=== PATIENT | female | born 1940 | race Caucasian/White ===

== ENCOUNTER 2016-12-11 12:31 | Day surgery (SDC) | payer MEDICARE, BC ==
--- NOTE | ~2016-12-11 | OP ---
Record Of Operation [facility] [address] [place]. [address] NAME: ROMAN ELENA : 40 STATUS : [place] [facility] [place] PAT#: [id number] AGE: 76 ADM/REG DATE : 12/11/16 MR#: [id number] REPORT SERV DATE: 12/11/16 DICTATED BY: Philomena TEJEDA DATE: 12/11/16 REPORT STATUS : Draft TRANSCRIBED BY: MODL DATE: 12/11/16 DATE OF PROCEDURE: PREOPERATIVE DIAGNOSIS: Chronic left ureteral obstruction with indwelling double-J stent. POSTOPERATIVE DIAGNOSIS: Chronic left ureteral obstruction with indwelling double-J stent, distal stent encrustation. PROCEDURES: Cystoscopy, cystolitholapaxy (small), removal of left double-J stent, left retrograde pyelogram, double-J stent placement, and removal of bladder stones. SURGEON: Philomena Tejeda M.D. ANESTHESIA: General. COMPLICATIONS: None. DRAINS: A 7-Cameroonian x 22 cm Contour double-J stent. 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 She has been managed with a stent for many years. Her last stent change was 05/11/2016. We typically tried to change this about every six months to avoid significant stone formation, but she has transportation problems. The risks of bleeding, infection, anesthesia, inability to access ureter, and need for open stone removal, etc. were discussed. There were no unanswered questions. She also noted some increase in urgency lightly and questioned about possible medication. DESCRIPTION OF PROCEDURE: Under excellent general anesthesia, the patient was prepped and draped in a standard lithotomy position. Cystoscopy was performed with a 30-degree lens and revealed a stent emanating from the left orifice with considerable encrustation. Using mechanical small lithotrite, I had removed the stone from this stent and eventually was able to remove the entire stent. Multiple small bladder chips were removed from the bladder and there were some tiny fragments left. It should pass on their own. I inserted a 5-Cameroonian open-ended catheter into the left ureter and dilutely opacified the well-decompressed collecting system. I then inserted an angled glidewire through this open-ended catheter and over the wire, placed a 7-Cameroonian x 22 cm Contour double-J stent, which coiled nicely in the renal pelvis and bladder and discharged with treatment as an outpatient with the following instructions. DISCHARGE INSTRUCTIONS: 1. Home today. 2. Percocet 5/325 one to two p.o. q.4 hours p.r.n. pain, #15. 3. Pyridium 200 mg one p.o. t.i.d. p.r.n. bladder pain #15 with one refill. 4. I would like to change her stent in six months. If her urgency persists, however, I would be happy to see her in the office to consider oral medications such as Record Of Operation [place] [id number] [address] [place]. [id number] NAME: ROMAN ELENA : 40 STATUS : [place] [facility] [place] PAT#: [id number] AGE: 76 ADM/REG DATE : 12/11/16 MR#: [id number] REPORT SERV DATE: 12/11/16 DICTATED BY: Philomena TEJEDA DATE: 12/11/16 REPORT STATUS : Draft TRANSCRIBED BY: ALONSO DATE: 12/11/16 anticholinergic or Myrbetriq. She mentioned having heard about the Myrbetriq on television. In addition, may consider reassessing her use of Theralith XR to perhaps help with prevention of stone encrustation. TAVON/ALONSO Philomena Tejeda M.D. / [id number] CC: Ira Hector M.D.
[~2016-12-11 12:31] MED LIST: AMARYL2 PO; AMB10 PO; AMITIZA8 MCG PO; BUSPAR15 M1 PO; CRESTOR5 MG PO; DURA25 TOP; DURA75 TOP; GLUCXL2.5 PO; KADIAN60 MG PO; MOTRIN IB200 MG PO; MSCONT15 PO; MSIMMR15 PO; NEUR300 PO; NEUR800 PO; REQUIP4 MG PO; RESTORIL30 MG PO; RITUXAN; RITUXAN IV; SEPTRA DS1 TAB PO; TOPXL50 PO; TRAZ100 PO; ZETIA PO; ZOL100 PO; [UNRECOGNIZED DRUG - OTHER] PO
== END 2016-12-11 17:49 | disposition home or self-care (01) ==
LOC: SDC 12:31
PROC: 0TCB8ZZ Extirpation of Matter from Bladder, Via Natural or Artificial Opening Endoscopic (ICD-10-PCS; 2016-12-11)
PROC: 0T778DZ Dilation of Left Ureter with Intraluminal Device, Via Natural or Artificial Opening Endoscopic (ICD-10-PCS; principal; 2016-12-11 14:00)
DX: N21.0 Calculus in bladder (principal); I10 Essential (primary) hypertension; E11.9 Type 2 diabetes mellitus without complications; F32.9 Major depressive disorder, single episode, unspecified; D64.9 Anemia, unspecified; Z96.1 Presence of intraocular lens; Z90.89 Acquired absence of other organs; Z87.01 Personal history of pneumonia (recurrent); Z90.49 Acquired absence of other specified parts of digestive tract; Z90.710 Acquired absence of both cervix and uterus; Z98.890 Other specified postprocedural states
CPT/HCPCS: 74420; 80048; 82962; 85025; 93005; C1758; C1769; C2617; J2250; J2405; Q9967